=== PATIENT | male | born 1955 | race Hispanic/Latino ===

== ENCOUNTER 2016-09-19 22:27 | Inpatient (IN) | payer MEDICAID, OTHER ==
[2016-09-19 23:25] LABS: Basophils % (Auto) 0.6 % (0.0-1.8); Eosinophils % (Auto) 0.9 % (0.0-4.3); Hematocrit 36.4 % (35.5-45.6); Mean Corpuscular HGB Conc 33 % (32-34); Mean Corpuscular Hemoglobin 30 pg (28-32); Mean Corpuscular Volume 90 fl (84-94); Platelet Count 220 K/mm3 (140-440); Red Blood Count 4.06 M/mm3 (3.65-5.03); Red Cell Distribution Width 15.5 % (13.2-15.2); White Blood Count 8.7 K/mm3 (4.5-11.0)
[2016-09-19 23:35] LABS: INR 1.37 (0.87-1.13); Partial Thromboplastin Time 32.9 Sec. (24.2-36.6)
[2016-09-19 23:38] LABS: Anion Gap 17 mmol/L; Blood Urea Nitrogen 11 mg/dL (9-20); Calcium 9.3 mg/dL (8.4-10.2); Carbon Dioxide 22 mmol/L (22-30); Chloride 100.6 mmol/L (98-107); Glucose 85 mg/dL (75-100); Potassium 3.9 mmol/L (3.6-5.0); Sodium 136 mmol/L (137-145)
[2016-09-20] MEDS ORDERED: NACL 0.9% 500 ML 500 ML IV ONE (00:06)
[2016-09-20] MEDS ORDERED: ZOFRAN IV ONE (00:06)
[2016-09-20] MEDS ORDERED: ASPIRIN PO ONE (00:06)
[2016-09-20] MEDS ORDERED: MORPHINE IV ONE (00:06)
[2016-09-20] MEDS ORDERED: NITRO-BID 2% TP ONE (00:06)
--- NOTE | 2016-09-20 00:15 | Emergency Department Report ---
ED Chest Pain HPI - General Chief Complaint: Chest Pain Stated Complaint: CHEST PAIN Time Seen by Provider: 09/19/16 23:41 Source: patient, family Mode of arrival: Ambulatory Limitations: No Limitations - History of Present Illness MD Complaint: chest pain -: Gradual Onset: during rest Pain Location: substernal, left chest Pain Radiation: none Severity scale (0 -10): 3 Quality: tightness Consistency: constant Improves With: nothing Worsens With: nothing re: dyspnea. denies: nausea, vomting, diaphoresis, sense of impending doom Other Symptoms: syncope, palpitations. denies: cough, fever, rash, acid taste in mouth, leg swelling Treatments Prior to Arrival: none - Related Data Allergies Allergy/AdvReac Type Severity Reaction Status Date / Time No Known Allergies Allergy Verified 09/19/16 22:42 NICOLE score - Nicole Score Age > 65: (0) No Aspirin use within the Past 7 Days: (1) Yes 3 or more CAD Risk Factors: (0) No 2 or more Angina events in past 24 hrs: (1) Yes Known CAD with more than 50% Stenosis: (0) No Elevated Cardiac Markers: (0) No ST Deviation Greater than 0.5mm: (0) No NICOLE Score: 2 ED Review of Systems ROS: Stated complaint: CHEST PAIN Other details as noted in HPI Constitutional: denies: chills, fever Eyes: denies: eye pain, eye discharge, vision change ENT: denies: ear pain, throat pain Respiratory: denies: cough, shortness of breath, wheezing Cardiovascular: denies: chest pain, palpitations Endocrine: no symptoms reported Gastrointestinal: denies: abdominal pain, nausea, diarrhea Genitourinary: denies: urgency, dysuria Musculoskeletal: denies: back pain, joint swelling, arthralgia Skin: denies: rash, lesions Neurological: denies: headache, weakness, paresthesias Psychiatric: denies: anxiety, depression Hematological/Lymphatic: denies: easy bleeding, easy bruising ED Past Medical Hx - Past Medical History Previous Medical History?: Yes Hx COPD: Yes Additional medical history: ANEURYSM / VALVE REPLACEMENT - Surgical History Past Surgical History?: Yes Additional Surgical History: HEART SURGERY - Social History Smoking Status: Current Every Day Smoker Substance Use Type: None ED Physical Exam - General Limitations: No Limitations General appearance: alert, in no apparent distress - Head Head exam: Present: atraumatic, normocephalic - Eye Eye exam: Present: normal appearance - ENT ENT exam: Present: mucous membranes moist - Neck Neck exam: Present: normal inspection - Respiratory Respiratory exam: Present: normal lung sounds bilaterally. Absent: respiratory distress - Cardiovascular Cardiovascular Exam: Present: regular rate, normal rhythm. Absent: systolic murmur, diastolic murmur, rubs, gallop - GI/Abdominal GI/Abdominal exam: Present: soft, normal bowel sounds - Rectal Rectal exam: Present: deferred - Extremities Exam Extremities exam: Present: normal inspection - Back Exam Back exam: Present: normal inspection - Neurological Exam Neurological exam: Present: alert, oriented X3 - Psychiatric Psychiatric exam: Present: normal affect, normal mood - Skin Skin exam: Present: warm, dry, intact, normal color. Absent: rash ED Course Vital Signs 09/19/16 09/19/16 22:45 23:58 Temperature 97.8 F Pulse Rate 82 68 Respiratory 26 H 16 Rate Blood Pressure 126/87 Blood Pressure 121/76 [Left] O2 Sat by Pulse 98 95 Oximetry ED Medical Decision Making - Lab Data Result diagrams: 09/19/16 22:58 09/19/16 22:58 - EKG Data -: EKG Interpreted by Me EKG shows normal: sinus rhythm Rate: normal - EKG Data When compared to previous EKG there are: no significant change Interpretation: no acute changes - Radiology Data Radiology results: report reviewed, image reviewed - Medical Decision Making Patient here for chest pain , ekg with RBBB,labs negative, troponin negative, cxr negative,. Spoke to cardiology and hospitalist regarding the admission, pain better during his ER stay. Critical care attestation.: If time is entered above; I have spent that time in minutes in the direct care of this critically ill patient, excluding procedure time. ED Disposition Clinical Impression: Chest pain Disposition: DISCHARGED TO HOME OR SELFCARE Is pt being admited?: Yes Does the pt Need Aspirin: No Condition: Fair Instructions: Chest Pain (ED) Referrals: PRIMARY CARE, [Primary Care Provider] - 3-5 Days Time of Disposition: 00:15
[2016-09-20] MEDS ORDERED: NITROSTAT SL PRN (00:35)
[2016-09-20] MEDS ORDERED: ZOFRAN IV PRN (00:35)
--- NOTE | 2016-09-20 01:52 | History and Physical Report ---
CHIEF COMPLAINT: Chest pain. HISTORY OF PRESENTING ILLNESS: The patient is a 61-year-old male who developed sharp chest pain going on since yesterday. Pain is in the precordial area and also substernal area, and radiates to the left upper limb. There is no associated nausea or vomiting. There is no diaphoresis, but there is associated palpitation, near syncopal feeling, as well as dyspnea. Pain was relieved with morphine and nitroglycerin. PAST MEDICAL HISTORY: Pertinent for hypertension, COPD, aortic valve abnormality. PAST SURGICAL HISTORY: Pertinent for aortic valve replacement. FAMILY HISTORY: Family history is noncontributory. SOCIAL HISTORY: The patient smokes cigarettes daily. Does not drink alcohol and does not use illicit drugs. MEDICATIONS: The patient's home medications are not known at this time. ALLERGIES: There are no known drug allergies. REVIEW OF SYSTEMS: CONSTITUTIONAL: There is no fever, no chills, no diaphoresis. HEENT: There is no headache or sore throat. CARDIOVASCULAR: There is chest pain, but no orthopnea. RESPIRATORY: Shortness of breath present. No cough. GASTROINTESTINAL: There is no nausea, no vomiting, no abdominal pain, diarrhea or constipation. NEUROLOGICAL: There is no numbness, no dizziness, no altered mental status. MUSCULOSKELETAL: There is no joint pain or swelling. DERMATOLOGICAL: There is no skin rash or itching. GENITOURINARY: There is no dysuria, hematuria, or flank pain. Rest of system review is normal. PHYSICAL EXAMINATION: GENERAL: At the time of exam, the patient was found to be alert, oriented x 3 and in mild to moderate distress due to pain. VITAL SIGNS: Shows temperature of 97.8 degrees Fahrenheit, pulse of 74, respirations about 16, blood pressure 121/76, O2 sat of 91% on room air. HEENT: Showed pupils to be equal, round, reactive to light and accommodation. Extraocular muscles are intact. NECK: Supple with no JVD or carotid bruit. CARDIOVASCULAR: Showed first and second heart sounds with no gallops or murmurs. RESPIRATORY: Showed good air entry in both lungs with no abnormal breath sounds. GASTROINTESTINAL: Showed abdomen to be full, soft, nontender, with no organomegaly or rigidity. NEUROLOGICAL: Neuro exam showed no focal deficit. MUSCULOSKELETAL: Showed no joint swelling or tenderness. DERMATOLOGICAL: Showed no skin rash. GENITOURINARY: Showed no costovertebral angle tenderness. PERTINENT LABORATORY DATA AND IMAGING STUDIES: The patient has lab tests done with no report of any chest x-ray abnormality. The patient's CBC showed normal white count, normal hemoglobin and normal hematocrit, with CBC differential showed elevated neutrophilic count. The patient's coagulation study shows slight increase in INR. The patient's chemistry shows slight decrease in sodium level of 136. Rest of chemistry is being unremarkable. The patient's troponin level was normal. DIAGNOSIS: Chest pain. PLAN: The patient will be admitted to medical floor on telemetry. Using chest pain pathway, we will have cardiac enzymes involving troponin, total CK, and CK-MB check q.6h. x 2 more levels. The patient will have Lexiscan stress test done in the morning and will be on aspirin 325 mg by mouth daily and oxygen per chest pain protocol. The patient will be on nitro paste 1 inch to anterior chest wall q.6h. and will be on IV morphine 2 mg every 3 hours as needed for pain. The patient will also be on Zofran 4 mg every 6 hours as needed for nausea and vomiting. The patient's case has already been discussed with the Cardiology through a consult by the Emergency Room physician. Further management of patient's condition will be dependent on the Cardiology consult. JOB# [id number] EPTRN/WILMER CEDENO
[2016-09-20] MEDS: MORPHINE IV PRN ×6 (03:13→22:30)
[2016-09-20] MEDS: NITRO-BID 2% TP SCH ×4 (07:29→17:59)
[2016-09-20] MEDS ORDERED: LEXISCAN IV ONE ×2 (09:58→10:04)
[2016-09-20] MEDS: HEPARIN SUB-Q SCH ×2 (12:37→22:00)
--- NOTE | 2016-09-20 12:37 | Admit Criteria Form ---
Admission Criteria Documentation: CARDIOLOGY GRG Clinical Indications for Admission to Inpatient Care ( Place 'X' for any and all applicable criteria): Hospital admission is needed for appropriate care of the patient because of ANY ONE of the following (1): [ ] I. Hemodynamic instability as indicated by ALL of the following (1)(2)(3) (4)(5) [ ]a) Vital signs or other findings not as expected for chronic patient condition or baseline [ ]b) Instability indicated by ANY ONE of the following: [ ]i) Hypotension [ ]ii) Symptomatic Tachycardia unresponsive to treatment ( e.g., analgesia, fluids, sedation as indicated) [ ]iii) Inadequate perfusion indicated by ANY ONE of the following: [ ] 1) Lactic acidosis (> 2 mmol/L) [ ] 2) New abnormal capillary refill (> 3 seconds) [ ] 3) Reduced urine output [ ] 4) New altered mental status [ ]iv) Orthostatic vital sign changes unresponsive to treatment (e.g., fluids) [ ]v) IV inotropic or vasopressor medication required to maintain adequate blood pressure or perfusion [ ] II. Severe heart failure as indicated by ANY ONE of the following(17)(18) [ ]a) Respiratory distress [ ]b) Hypotension [ ]c) Anasarca (refractory to outpatient therapy) [ ]d) Cardiac arrhythmias of immediate concern [ ]e) Myocardial ischemia [ ] III. Cardiac arrhythmias or findings of immediate concern indicated by ANY ONE of the following (19)(20): [ ] a) Heart rhythms that are inherently dangerous or unstable indicated by ANY ONE of the following (21)(22)(23): [ ] i) Resuscitated ventricular fibrillation or cardiac arrest [ ] ii) Ventricular escape rhythm [ ] iii) Sustained ventricular tachycardia (30 seconds or more of ventricular rhythm at greater than 100 beats per minute) [ ] iv) Nonsustained ventricular tachycardia and ANY ONE of the following: [ ] 1) Suspected cardiac ischemia as cause or consequence of ventricular tachycardia [ ] 2) In setting of acute myocarditis [ ] b) Unstable cardiac conduction defects indicated by ANY ONE of the following(23)(24)(25) [ ] i) Type II second-degree atrioventricular block [ ]ii) Third-degree atrioventricular block [ ]iii) New-onset left bundle branch block with suspected myocardial ischemia [ ]c) Any heart rhythm and ANY ONE of the following (21)(22)(26)(27) (28) [ ] i) Continuous long-term ECG monitoring needed (e.g., initiation of drug requiring monitoring for more than 24 hours) [ ] ii) Patient has automatic implanted cardioverter defibrillator that is repeatedly firing, malfunctioning, or in need of immediate adjustment of settings beyond the scope of ambulatory or observation care [ ]d) Heart rhythms of concern due to ANY ONE of the following: [ ] i) Hypotension [ ] ii) Respiratory distress [ ] iii) Association with other significant symptoms (e.g., bradycardia with syncope or ongoing dizziness, supraventricular tachycardia with chest pain (14)(15)(17) [ ] IV. Monitoring for cardiac contusion beyond the scope of observation care needed [A](30)(31)(32) [ ] V. Surgical or device complication (e.g., valve replacement complication , pacemaker dysfunction) (35)(41)(44)(45)(46) [ ] . Inpatient palliative care needed. [B](49) Also use Inpatient Palliative Care Criteria [ ] VII. Nonbacterial thrombotic (marantic) endocarditis (36)(43)(47)(48) [X] VIII. Cardiology condition, symptom, or finding for which emergency and observation care has failed or are not considered appropriate. [ ] IX. Acute valvular disease requiring inpatient as indicated by ANY ONE of the following (41) [ ]a) Acute valvular regurgitation (42) [ ]b) Noninfectious valvulitis (43) [ ]c) Obstructive valve thrombosis [ ]d) Paravalvular leak [ ]e) Other significant valvular disorder remaining after emergency or observation level of care (as appropriate) [ ]X. Pericardial disease requiring inpatient treatment as indicated by ANY ONE of the following (33)(34)(35)(36)(37) [ ]a) Suspected tamponade (38)(39)(40) [ ]b) Hemopericardium [ ]c) Other significant pericardial disorder remaining after emergency or observation level of care (as appropriate) [ ] XI. Cardiac ischemia beyond scope of emergency and observation care. [ ] XII. Hypertension requiring inpatient treatment as indicated by ANY ONE of the following (6)(7)(8) [ ]a) SBP greater than 220 mm Hg or DBP greater than 120 mmHg despite treatment [ ]b) SBP greater than 140 mm Hg or DBP greater than 100 mm Hg with evidence of acute end organ damage as indicated by ANY ONE of the following [ ] i) Altered mental status [ ] ii) Acute renal failure as indicated by new onset of ANY ONE of the following (9)(10)(11)(12)(13) [ ]1) 3-fold rise in serum creatinine from baseline [ ]2) Serum creatinine greater than 4 mg/dL ( 354 micromoles/L) with acute rise greater than 0.5 mg/dL (44.2 micromoles/L) [ ]3) Reduction of more than 75% in estimated glomerular filtration rate from baseline [ ]4) Estimated glomerular filtration rate less than 35 mL/min/1.73m2 (0.59 mL/sec/1.73m2) in child up to 18 years of age [ ]5) Cessation of urine output indicated by ALL of the following [ ]A. Adequate volume status [ ]B. Inadequate urine output as indicated by ANY ONE of the following [ ]a. Urine output less than 0.3 mL/kg/hr for 24 hours [ ]b. Anuria (urine output less than 0.1 mL/kg/hr) for 12 hours [ ] iii) Aortic dissection [ ] iv) Myocardial Ischemia [ ] v) Left ventricular heart failure [ ]vi) Retinal Hemorrhage [ ]vii) Other significant finding [ ]c) Hypertension in child requiring inpatient treatment as indicated by ALL of the following(14)(15)(16) [ ] i) Outpatient treatment not effective, not available, or not appropriate [ ]ii) SBP or DBP greater than 95th percentile for age [ ]iii) Evidence of acute end organ damage as indicated by ANY ONE of the following [ ]1) Altered mental status [ ]2) Acute renal failure as indicated by new onset of ANY ONE of the following(9)(10)(11)(12)(13) [ ]A. 3-fold rise in serum creatinine from baseline [ ]B. Serum creatinine greater than 4 mg/dL (354 micromoles/L) with acute rise greater than 0.5 mg/dL (44.2 micromoles/L) [ ]C. Reduction of more than 75% in estimated glomerular filtration rate from baseline [ ]D. Estimated glomerular filtration rate less than 35 mL/min/1.73m2 (0.59 mL/sec/1.73m2) in child up to 18 years of age [ ]E. Cessation of urine output indicated by ALL of the following [ ]a. Adequate volume status [ ]b. Inadequate urine output as indicated by ANY ONE of the following [ ]i) Urine output less than 0.3 mL/kg/hr for 24 hours [ ]ii) Anuria ( urine output less than 0.1 mL/kg/hr) for 12 hours [ ]3) Severe headache [ ]4) Visual disturbance [ ]5) Retinal hemorrhage [ ]6) Other significant finding [ ]XIII. Complications of transplanted heart indicated by ANY ONE of the following(61): [ ]a) Acute graft rejection requiring inpatient management (eg, intravenous immunosuppression)(62)(63) [ ]b) Acute graft heart failure indicated by ANY ONE of the following(64): [ ]i) Hemodynamic instability [ ]ii) Cardiac arrhythmias of immediate concern [ ]iii) Pulmonary edema that is very severe (eg, mechanical ventilation needed, imminent or likely, need for 100% oxygen to keep oxygen saturation above 90%) [ ]iv) Pulmonary edema that is persistent as indicated by ALL of the following: [ ]1) New need for oxygen therapy to keep oxygen saturation above 90% (or increased FiO2 need from baseline) [ ]2) Has not improved sufficiently with emergency department or observation care IV diuretics or other heart failure treatments[E] [ ]v) Altered mental status that is severe or persistent [ ]vi) Increased creatinine (new on laboratory test) with reduction of more than 50% in estimated glomerular filtration rate from baseline [ ]vii) Progressively (ongoing) rising creatinine (known from past laboratory test) with reduction of more than 25% in estimated glomerular filtration rate from baseline [ ]viii) Acute renal failure [ ]ix) Acute peripheral ischemia (eg, examination shows pulseless, cool, mottled, or cyanotic extremity) [ ]x) Pulmonary artery catheter monitoring needed [ ]xi) Other sign or symptom of heart failure requiring inpatient treatment (ie, too severe or not responsive to outpatient and observation care treatment) [ ]c) Infection requiring inpatient management (eg, Hemodynamic instability, need for intravenous antimicrobial treatment)(66)(67)(68)(69)(70) [ ]d) Cardiac allograft vasculopathy requiring inpatient management ( eg evidence of cardiac ischemia)(71) [ ]e) Other complication of transplanted heart (eg, stroke, severe pulmonary hypertension, severe valvular dysfunction) requiring inpatient management(72) The original [facility] [employer] content created by [employer] has been revised. The portions of the content which have been revised are identified through the use of italic text or in bold, and [facility] has neither reviewed nor approved the modified material. All other unmodified content is copyright [facility] [employer]. Please see references footnoted in the original [facility] [employer] edition 2016 Admission Criteria Met: Yes
[2016-09-20 14:35] LABS: Creatine Kinase MB 3.7 ng/mL (0.0-4.0)
[2016-09-20 14:37] LABS: Creatine Kinase 134 units/L (55-170)
[2016-09-20] MEDS: COUMADIN PO SCH (17:25)
[2016-09-20 19:17] LABS: Creatine Kinase MB 3.7 ng/mL (0.0-4.0)
[2016-09-20 19:19] LABS: Creatine Kinase 123 units/L (55-170)
[2016-09-21] MEDS: MORPHINE IV PRN ×5 (02:15→19:00)
--- NOTE | 2016-09-21 02:42 | Treadmill Report ---
INDICATION: Chest pain. ORDERING PHYSICIAN: Gina Montgomery M.D. FINDINGS: There is no scintigraphic evidence of myocardial ischemia. There is evidence of small fixed inferior wall defect likely secondary to diaphragmatic, adjacent bowel attenuation. There is normal left ventricular size and systolic function. The left ventricular ejection fraction is measured at 51%. There is normal wall motion and wall thickening. CONCLUSION: 1. No scintigraphic evidence of myocardial ischemia. 2. Fixed small inferior wall defect secondary to overlying diaphragmatic, bowel attenuation. 3. Normal left ventricular size and systolic function and left ventricular ejection fraction is measured at 51%. JOB# [id number] KEITH/WILMER
[2016-09-21 06:37] LABS: INR 1.16 (0.87-1.13)
[2016-09-21] MEDS: NITRO-BID 2% TP SCH ×3 (10:00→18:03)
[2016-09-21] MEDS ORDERED: LOVENOX SUB-Q SCH (12:00)
--- NOTE | 2016-09-21 13:52 | Progress Note ---
Assessment and Plan This is a 61 year old male presented with left precordial chest pain at rest. He states that he had a recent thallium scan which was negative but while in the emergency room patient was found to have a subtherapeutic INR and admitted to a adjust his Coumadin. Acute chest pain, recent stress test negative, cardiology consult HTN, cont home meds COPD, not on exacerbation, duenebs as needed h/o mechanical aortic valve, on coumadin Subtherapeutic INR, bridge with lovenox till therapeutic Subjective Date of service: 09/21/16 Interval history: Pt seen and examined denies any chest pain now worried about low INR Updated at bedside Objective - Constitutional Vitals: Vital Signs - 12hr 09/21/16 09/21/16 09/21/16 02:15 02:45 06:35 Temperature 99.1 F Pulse Rate [ 65 Right Radial] Respiratory 18 18 20 Rate Blood Pressure 117/68 [Right Arm] O2 Sat by Pulse 95 Oximetry 09/21/16 09/21/16 09:53 09:57 Temperature 97.2 F L Pulse Rate [ 61 Right Radial] Respiratory 18 Rate Blood Pressure 120/69 [Right Arm] O2 Sat by Pulse 96 94 Oximetry General appearance: Present: no acute distress, well-nourished - EENT Eyes: PERRL, EOM intact ENT: hearing intact, clear oral mucosa Ears: bilateral: normal - Neck Neck: supple, normal ROM - Respiratory Respiratory effort: normal Respiratory: bilateral: CTA - Breasts Breasts: deferred - Cardiovascular Rhythm: regular Heart Sounds: Present: S1 & S2. Absent: gallop, rub Extremities: pulses intact, No edema, normal color, Full ROM - Gastrointestinal General gastrointestinal: Present: soft, non-tender, non-distended, normal bowel sounds - Genitourinary Male genitourinary: deferred - Integumentary Integumentary: clear, warm, dry - Musculoskeletal Musculoskeletal: 1, strength equal bilaterally - Neurologic Neurologic: moves all extremities - Psychiatric Psychiatric: memory intact, appropriate mood/affect, intact judgment & insight - Labs CBC & Chem 7: 09/19/16 22:58 09/21/16 13:27 Labs: Abnormal lab results 09/21/16 Range/Units 04:50 INR 1.16 H (0.87-1.13)
[2016-09-21 14:30] LABS: Anion Gap 16 mmol/L; Blood Urea Nitrogen 12 mg/dL (9-20); Calcium 8.7 mg/dL (8.4-10.2); Carbon Dioxide 28 mmol/L (22-30); Chloride 100.1 mmol/L (98-107); Glucose 93 mg/dL (75-100); Sodium 140 mmol/L (137-145)
[2016-09-21] MEDS: COUMADIN PO SCH (17:59)
[2016-09-21] MEDS: LOVENOX SUB-Q SCH (21:43)
[2016-09-21] MEDS: PERCOCET 5/325 PO PRN (22:10)
[2016-09-22] MEDS: MORPHINE IV PRN ×4 (05:55→20:18)
[2016-09-22] MEDS: NITRO-BID 2% TP SCH ×4 (05:56→17:44)
[2016-09-22 07:53] LABS: INR 1.15 (0.87-1.13)
[2016-09-22] MEDS: LOVENOX SUB-Q SCH ×2 (09:37→22:20)
[2016-09-22] MEDS ORDERED: COUMADIN PO SCH (09:50)
--- NOTE | 2016-09-22 12:41 | Consultation ---
History of Present Illness Consult date: 09/22/16 Consult reason: chest pain History of present illness: This is a 61 year old male presented with left precordial chest pain at rest. He claims he had a recent thallium scan which was negative but while in the emergency room patient was found to have a subtherapeutic INR and admitted to a adjust his Coumadin. Past History Past Medical History: COPD, hypertension Past Surgical History: valve replacement Social history: lives with family, smoking Family history: no significant family history Medications and Allergies Allergies Allergy/AdvReac Type Severity Reaction Status Date / Time No Known Allergies Allergy Verified 09/19/16 22:42 Home Medications Medication Instructions Recorded Confirmed Last Taken Type Metoprolol 25 mg PO DAILY 09/20/16 09/20/16 Unknown History Sertraline 50 mg PO DAILY 09/20/16 09/20/16 Unknown History Warfarin Sodium 5 mg PO BID 09/20/16 09/20/16 Unknown History Active Meds: Active Medications Acetaminophen (Tylenol) 650 mg PO Q4H PRN PRN Reason: For Pain/Fever/Headache Enoxaparin Sodium (Lovenox) 70 mg SUB-Q Q12HR [facility] Last Admin: 09/22/16 09:37 Dose: 70 mg Morphine Sulfate (Morphine) 2 mg IV Q3H PRN PRN Reason: Pain, Moderate (4-6) Last Admin: 09/22/16 09:35 Dose: 2 mg Nitroglycerin (Nitrostat) 0.4 mg SL Q5M PRN PRN Reason: Chest pain Nitroglycerin (Nitro-Bid 2%) 1 inch TP QIDNTG [facility] PRN Reason: Protocol Last Admin: 09/22/16 09:46 Dose: 1 inch Ondansetron HCl (Zofran) 4 mg IV Q6H PRN PRN Reason: Nausea And Vomiting Oxycodone/Acetaminophen (Percocet 5/325) 1 tab PO Q6H PRN PRN Reason: Pain, Moderate (4-6) Last Admin: 09/21/16 22:10 Dose: 1 tab Warfarin Sodium (Coumadin Pharmacy To Dose) 1 each PO PKCONSULT [facility] PRN Reason: Protocol Warfarin Sodium (Coumadin) 12.5 mg PO DAILY@1700 [facility] Review of Systems Cardiovascular: chest pain Physical Examination Vital Signs Temp Pulse Resp BP Pulse Ox 97.8 F 82 26 H 126/87 98 09/19/16 22:45 09/19/16 22:45 09/19/16 22:45 09/19/16 22:45 09/19/16 22:45 General appearance: no acute distress, well-nourished HEENT: Positive: PERRL, Mucus Membranes Moist Neck: Positive: neck supple, trachea midline Cardiac: Positive: Reg Rate and Rhythm, S1/S2 (metallic click second heart sounds). Negative: Audible Murmur Lungs: Positive: clear to auscultation, Normal Breath Sounds Neuro: Positive: Grossly Intact Abdomen: Positive: Soft, Active Bowel Sounds. Negative: Tender, Distended Male genitourinary: Positive: normal Skin: Positive: Clear Incision: Cardiac Cath Site Musculoskeletal: No Pain, Normal Range of Motion Extremities: Present: normal. Absent: edema Results 09/19/16 22:58 09/21/16 13:27 Coagulation 09/22/16 Range/Units 07:11 PT 14.6 (12.2-14.9) Sec. INR 1.15 H (0.87-1.13) Comprehensive Metabolic Panel 09/21/16 Range/Units 13:27 Sodium 140 (137-145) mmol/L Potassium 4.0 (3.6-5.0) mmol/L Chloride 100.1 (98-107) mmol/L Carbon Dioxide 28 (22-30) mmol/L BUN 12 (9-20) mg/dL Creatinine 1.1 (0.8-1.5) mg/dL Glucose 93 (75-100) mg/dL Calcium 8.7 (8.4-10.2) mg/dL Assessment and Plan 1. Atypical chest pains several troponin levels are normal according to patient had a recent thallium scan done which was negative. 2. Subtherapeutic INR and adjust Coumadin dose 3. Status post aortic valve replacement 4. Chronic obstructive pulmonary disease Plan. Patient is a patient of Dr. Brendan Freed which I'll obtain records of recent thallium scan done from the office. Continue Lovenox coverage and adjust Coumadin dose
--- NOTE | 2016-09-22 16:17 | Progress Note ---
Assessment and Plan This is a 61 year old male presented with left precordial chest pain at rest. He states that he had a recent thallium scan which was negative but while in the emergency room patient was found to have a subtherapeutic INR and admitted to a adjust his Coumadin. Acute chest pain, recent stress test negative, cardiology consult HTN, cont home meds COPD, not on exacerbation, duenebs as needed h/o mechanical aortic valve, on coumadin Subtherapeutic INR, bridge with lovenox till therapeutic, increased dose of coumadin today Subjective Date of service: 09/22/16 Principal diagnosis: chest pain Interval history: Pt seen and examined denies any chest pain now worried about low INR no acute event o/n Objective - Constitutional Vitals: Vital Signs - 12hr 09/22/16 09/22/16 09/22/16 05:56 09:41 09:46 Temperature 98.0 F Pulse Rate 84 84 Pulse Rate [ 76 Right Radial] Blood Pressure 128/76 128/76 Blood Pressure 133/83 [Right Arm] O2 Sat by Pulse 97 Oximetry 09/22/16 09/22/16 15:07 15:29 Temperature Pulse Rate 70 Pulse Rate [ 73 Right Radial] Blood Pressure 131/71 Blood Pressure 126/71 [Right Arm] O2 Sat by Pulse Oximetry General appearance: Present: no acute distress, well-nourished - EENT Eyes: PERRL, EOM intact ENT: hearing intact, clear oral mucosa Ears: bilateral: normal - Neck Neck: supple, normal ROM - Respiratory Respiratory effort: normal Respiratory: bilateral: CTA - Cardiovascular Rhythm: regular Heart Sounds: Present: S1 & S2. Absent: gallop, rub Extremities: pulses intact, No edema, normal color, Full ROM - Gastrointestinal General gastrointestinal: Present: soft, non-tender, non-distended, normal bowel sounds - Integumentary Integumentary: clear, warm, dry - Musculoskeletal Musculoskeletal: 1, strength equal bilaterally - Neurologic Neurologic: moves all extremities - Psychiatric Psychiatric: memory intact, appropriate mood/affect, intact judgment & insight - Labs CBC & Chem 7: 09/19/16 22:58 09/21/16 13:27 Labs: Abnormal lab results 09/22/16 Range/Units 07:11 INR 1.15 H (0.87-1.13)
[2016-09-22] MEDS: COUMADIN PO SCH ×2 (17:42→17:43)
[2016-09-22] MEDS: PERCOCET 5/325 PO PRN (23:35)
[2016-09-23] MEDS: MORPHINE IV PRN ×4 (04:28→20:12)
[2016-09-23] MEDS: NITRO-BID 2% TP SCH ×5 (06:25→17:53)
[2016-09-23 08:10] LABS: INR 1.16 (0.87-1.13)
[2016-09-23] MEDS: LOVENOX SUB-Q SCH ×2 (10:54→21:49)
--- NOTE | 2016-09-23 11:52 | Progress Note ---
Assessment and Plan Atypical chest pain no ischemia by MPI this admission Hx of mechanical Aortic valve replacement on warfarin therapy as an outpatient. Subtherapeutic INR on presentation Recommend: Continue coumadin with lovenox bridge. Target INR 2.5-3.5. Pharmacy is following. Subjective Date of service: 09/23/16 Principal diagnosis: chest pain Interval history: Patient resting in bed comfortably. He had a negative stress thallium this admission. He has a remote history of mechanical AVR and awaits therapeutic INR before discharge. Objective Vital Signs Temp Pulse Pulse Pulse Resp BP BP 09/23/16 07:45 97.9 F 70 18 135/75 09/23/16 05:54 98.7 F 77 20 128/70 09/23/16 04:28 8 L 09/23/16 01:09 98.7 F 59 L 18 113/64 09/22/16 22:00 16 09/22/16 21:20 98.1 F 69 20 110/64 09/22/16 19:10 65 116/68 09/22/16 17:44 72 109/68 09/22/16 15:29 73 126/71 09/22/16 15:07 70 131/71 Pulse Ox 09/23/16 07:45 98 09/23/16 05:54 95 09/23/16 04:28 09/23/16 01:09 96 09/22/16 22:00 09/22/16 21:20 96 09/22/16 19:10 09/22/16 17:44 09/22/16 15:29 09/22/16 15:07 - Physical Examination General: No Apparent Distress HEENT: Positive: PERRL Neck: Positive: trachea midline Cardiac: Positive: Reg Rate and Rhythm Lungs: Positive: Decreased Breath Sounds Neuro: Positive: Grossly Intact Extremities: Absent: edema - Labs and Meds Coagulation 09/23/16 Range/Units 05:43 PT 14.7 (12.2-14.9) Sec. INR 1.16 H (0.87-1.13)
--- NOTE | 2016-09-23 15:52 | Progress Note ---
Assessment and Plan This is a 61 year old male presented with left precordial chest pain at rest. He states that he had a recent thallium scan which was negative but while in the emergency room patient was found to have a subtherapeutic INR and admitted to a adjust his Coumadin. Acute chest pain, recent stress test negative, cardiology following HTN, cont home meds COPD, not on exacerbation, duenebs as needed h/o mechanical aortic valve, on coumadin Subtherapeutic INR, bridge with lovenox till therapeutic, pharmacy dosing coumadin Subjective Principal diagnosis: chest pain Interval history: Pt seen and examined denies any chest pain now worried about low INR no acute event o/n Objective - Constitutional Vitals: Vital Signs - 12hr 09/23/16 09/23/16 09/23/16 04:28 05:54 07:21 Temperature 98.7 F Pulse Rate 65 Pulse Rate [ Left Radial] Pulse Rate [ 77 Right Dorsalis Pedis] Pulse Rate [ Right Radial] Respiratory 8 L 20 Rate Blood Pressure Blood Pressure 128/70 [Right Arm] O2 Sat by Pulse 95 Oximetry 09/23/16 09/23/16 09/23/16 07:45 10:55 10:56 Temperature 97.9 F Pulse Rate 70 70 Pulse Rate [ Left Radial] Pulse Rate [ Right Dorsalis Pedis] Pulse Rate [ 70 Right Radial] Respiratory 18 Rate Blood Pressure 135/75 135/75 Blood Pressure 135/75 [Right Arm] O2 Sat by Pulse 98 Oximetry 09/23/16 09/23/16 14:00 15:00 Temperature Pulse Rate 56 L Pulse Rate [ 56 L Left Radial] Pulse Rate [ Right Dorsalis Pedis] Pulse Rate [ Right Radial] Respiratory Rate Blood Pressure 107/62 Blood Pressure 107/62 [Right Arm] O2 Sat by Pulse Oximetry General appearance: Present: no acute distress, well-nourished - EENT Eyes: PERRL, EOM intact ENT: hearing intact, clear oral mucosa Ears: bilateral: normal - Neck Neck: supple, normal ROM - Respiratory Respiratory effort: normal Respiratory: bilateral: CTA - Cardiovascular Rhythm: regular Heart Sounds: Present: S1 & S2. Absent: gallop, rub Extremities: pulses intact, No edema, normal color, Full ROM - Gastrointestinal General gastrointestinal: Present: soft, non-tender, non-distended, normal bowel sounds - Integumentary Integumentary: clear, warm, dry - Musculoskeletal Musculoskeletal: 1, strength equal bilaterally - Neurologic Neurologic: moves all extremities - Psychiatric Psychiatric: memory intact, appropriate mood/affect, intact judgment & insight - Labs CBC & Chem 7: 09/19/16 22:58 09/21/16 13:27 Labs: Abnormal lab results 09/23/16 Range/Units 05:43 INR 1.16 H (0.87-1.13)
[2016-09-23] MEDS: COUMADIN PO SCH ×2 (17:53)
[2016-09-23] MEDS: PERCOCET 5/325 PO PRN (21:50)
[2016-09-24] MEDS: TYLENOL PO PRN ×2 (00:10→22:59)
[2016-09-24] MEDS: MORPHINE IV PRN (03:05)
[2016-09-24] MEDS: NITRO-BID 2% TP SCH ×4 (06:28→18:00)
[2016-09-24 08:01] LABS: INR 1.33 (0.87-1.13)
[2016-09-24] MEDS: LOVENOX SUB-Q SCH ×2 (09:46→22:58)
--- NOTE | 2016-09-24 10:40 | Progress Note ---
Assessment and Plan Atypical chest pain no ischemia by MPI this admission Hx of mechanical Aortic valve replacement on warfarin therapy as an outpatient. Subtherapeutic INR on presentation Recommend: Continue coumadin with lovenox bridge. Target INR 2.5-3.5. Pharmacy is following. Discharge when INR is therapeutic for mechanical valve. Subjective Date of service: 09/24/16 Principal diagnosis: chest pain Interval history: There are no cardiac complaints. Awaits therapeutic INR. Objective Vital Signs Temp Pulse Pulse Pulse Pulse Resp BP 09/24/16 09:41 70 09/24/16 09:00 98.7 F 79 12 09/24/16 08:45 98.7 F 79 16 09/24/16 06:28 59 L 100/49 09/24/16 05:16 98.2 F 59 L 20 09/24/16 03:40 64 09/24/16 03:05 20 09/24/16 00:23 97.6 F 58 L 18 09/24/16 00:10 20 09/23/16 21:50 18 09/23/16 20:42 18 09/23/16 20:12 98 F 63 20 09/23/16 17:53 64 111/66 09/23/16 17:00 97.9 F 64 18 09/23/16 15:00 56 L 107/62 09/23/16 14:00 56 L 09/23/16 11:55 97.9 F 60 18 09/23/16 10:56 70 135/75 09/23/16 10:55 70 135/75 BP BP Pulse Ox 09/24/16 09:41 90/54 09/24/16 09:00 114/65 95 09/24/16 08:45 140/93 99 09/24/16 06:28 09/24/16 05:16 100/49 96 09/24/16 03:40 09/24/16 03:05 09/24/16 00:23 118/66 96 09/24/16 00:10 09/23/16 21:50 09/23/16 20:42 09/23/16 20:12 108/67 98 09/23/16 17:53 09/23/16 17:00 111/66 97 09/23/16 15:00 09/23/16 14:00 107/62 09/23/16 11:55 125/72 97 09/23/16 10:56 09/23/16 10:55 - Physical Examination General: No Apparent Distress HEENT: Positive: PERRL Neck: Positive: trachea midline Cardiac: Positive: Reg Rate and Rhythm Neuro: Positive: Grossly Intact Abdomen: Negative: Tender, Distended Skin: Positive: Clear Incision: Cardiac Cath Site Musculoskeletal: No Pain, Normal Range of Motion Extremities: Absent: edema - Labs and Meds Coagulation 09/24/16 Range/Units 06:25 PT 16.4 H (12.2-14.9) Sec. INR 1.33 H (0.87-1.13)
[2016-09-24] MEDS: PERCOCET 5/325 PO PRN ×2 (12:10→18:55)
--- NOTE | 2016-09-24 16:53 | Progress Note ---
Assessment and Plan This is a 61 year old male presented with left precordial chest pain at rest. He states that he had a recent thallium scan which was negative but while in the emergency room patient was found to have a subtherapeutic INR and admitted to a adjust his Coumadin. Acute chest pain, recent stress test negative, cardiology following HTN, cont home meds COPD, not on exacerbation, duenebs as needed h/o mechanical aortic valve, on coumadin Subtherapeutic INR, bridge with lovenox till therapeutic, pharmacy dosing coumadin Subjective Date of service: 09/24/16 Principal diagnosis: chest pain Interval history: Pt seen and examined denies any chest pain now worried about low INR no acute event o/n Objective - Exam Narrative Exam: General appearance: Present: no acute distress, well-nourished - EENT Eyes: PERRL, EOM intact ENT: hearing intact, clear oral mucosa Ears: bilateral: normal - Neck Neck: supple, normal ROM - Respiratory Respiratory effort: normal Respiratory: bilateral: CTA - Cardiovascular Rhythm: regular Heart Sounds: Present: S1 & S2. Absent: gallop, rub Extremities: pulses intact, No edema, normal color, Full ROM - Gastrointestinal General gastrointestinal: Present: soft, non-tender, non-distended, normal bowel sounds - Integumentary Integumentary: clear, warm, dry - Musculoskeletal Musculoskeletal: 1, strength equal bilaterally - Neurologic Neurologic: moves all extremities - Psychiatric Psychiatric: memory intact, appropriate mood/affect, intact judgment & insight - Constitutional Vitals: Vital Signs - 12hr 09/24/16 09/24/16 09/24/16 05:16 06:28 08:45 Temperature 98.2 F 98.7 F Pulse Rate 59 L Pulse Rate [ Left Radial] Pulse Rate [ 59 L Right Dorsalis Pedis] Pulse Rate [ 79 Right Radial] Respiratory 20 16 Rate Blood Pressure 100/49 Blood Pressure 100/49 140/93 [Right Arm] O2 Sat by Pulse 96 99 Oximetry 09/24/16 09/24/16 09/24/16 09:00 09:41 11:53 Temperature 98.7 F 97.5 F L Pulse Rate Pulse Rate [ 70 56 L Left Radial] Pulse Rate [ Right Dorsalis Pedis] Pulse Rate [ 79 Right Radial] Respiratory 12 18 Rate Blood Pressure Blood Pressure 114/65 90/54 112/71 [Right Arm] O2 Sat by Pulse 95 96 Oximetry - Labs CBC & Chem 7: 09/19/16 22:58 09/21/16 13:27 Labs: Abnormal lab results 09/24/16 Range/Units 06:25 PT 16.4 H (12.2-14.9) Sec. INR 1.33 H (0.87-1.13)
[2016-09-24] MEDS: COUMADIN PO SCH ×2 (17:48)
[2016-09-25] MEDS: PERCOCET 5/325 PO PRN ×4 (00:56→20:04)
[2016-09-25 05:57] LABS: INR 1.65 (0.87-1.13)
[2016-09-25] MEDS: NITRO-BID 2% TP SCH ×4 (06:35→17:51)
--- NOTE | 2016-09-25 09:25 | Progress Note ---
Assessment and Plan Atypical chest pain no ischemia by MPI this admission Hx of mechanical Aortic valve replacement on warfarin therapy as an outpatient Subtherapeutic INR on presentation Recommend: Continue coumadin with lovenox bridge. Target INR 2.5-3.5. Pharmacy is following. Discharge when INR is therapeutic for mechanical valve. Subjective Date of service: 09/25/16 Principal diagnosis: chest pain Interval history: There are no cardiac complaints. Awaits therapeutic INR. Objective Vital Signs Temp Pulse Pulse Pulse Resp BP BP 09/25/16 08:44 61 09/25/16 06:35 52 L 129/72 09/25/16 05:55 100.8 F H 89 20 124/69 09/25/16 00:50 98.1 F 52 L 18 129/72 09/24/16 20:57 97.8 F 63 20 116/67 09/24/16 19:06 114/63 09/24/16 11:53 97.5 F L 56 L 18 112/71 09/24/16 09:41 70 90/54 Pulse Ox 09/25/16 08:44 09/25/16 06:35 09/25/16 05:55 98 09/25/16 00:50 98 09/24/16 20:57 99 09/24/16 19:06 09/24/16 11:53 96 09/24/16 09:41 - Physical Examination General: No Apparent Distress HEENT: Positive: PERRL Neck: Positive: trachea midline Cardiac: Positive: Reg Rate and Rhythm Lungs: Positive: Decreased Breath Sounds Neuro: Positive: Grossly Intact Extremities: Absent: edema - Labs and Meds Coagulation 09/25/16 Range/Units 05:20 PT 19.5 H (12.2-14.9) Sec. INR 1.65 H (0.87-1.13)
[2016-09-25] MEDS: LOVENOX SUB-Q SCH ×2 (10:11→21:25)
--- NOTE | 2016-09-25 15:50 | Progress Note ---
Assessment and Plan This is a 61 year old male presented with left precordial chest pain at rest. He states that he had a recent thallium scan which was negative but while in the emergency room patient was found to have a subtherapeutic INR and admitted to a adjust his Coumadin. Acute chest pain, recent stress test negative, cardiology following HTN, cont home meds COPD, not on exacerbation, duenebs as needed h/o mechanical aortic valve, on coumadin Subtherapeutic INR, bridge with lovenox till therapeutic, pharmacy dosing coumadin Subjective Date of service: 09/25/16 Principal diagnosis: chest pain Interval history: Pt seen and examined denies any chest pain now no acute event o/n INR 1.65 today Objective - Exam Narrative Exam: General appearance: Present: no acute distress, well-nourished - EENT Eyes: PERRL, EOM intact ENT: hearing intact, clear oral mucosa Ears: bilateral: normal - Neck Neck: supple, normal ROM - Respiratory Respiratory effort: normal Respiratory: bilateral: CTA - Cardiovascular Rhythm: regular Heart Sounds: Present: S1 & S2. Absent: gallop, rub Extremities: pulses intact, No edema, normal color, Full ROM - Gastrointestinal General gastrointestinal: Present: soft, non-tender, non-distended, normal bowel sounds - Integumentary Integumentary: clear, warm, dry - Musculoskeletal Musculoskeletal: 1, strength equal bilaterally - Neurologic Neurologic: moves all extremities - Psychiatric Psychiatric: memory intact, appropriate mood/affect, intact judgment & insight - Constitutional Vitals: Vital Signs - 12hr 09/25/16 09/25/16 09/25/16 05:55 06:35 08:44 Temperature 100.8 F H Pulse Rate 52 L 61 Pulse Rate [ Left Radial] Pulse Rate [ 89 Right Dorsalis Pedis] Respiratory 20 Rate Blood Pressure 129/72 Blood Pressure 124/69 [Right Arm] O2 Sat by Pulse 98 Oximetry 09/25/16 09:52 Temperature 97.6 F Pulse Rate Pulse Rate [ 57 L Left Radial] Pulse Rate [ Right Dorsalis Pedis] Respiratory 18 Rate Blood Pressure Blood Pressure 164/96 [Right Arm] O2 Sat by Pulse 96 Oximetry - Labs CBC & Chem 7: 09/19/16 22:58 09/21/16 13:27 Labs: Abnormal lab results 09/25/16 Range/Units 05:20 PT 19.5 H (12.2-14.9) Sec. INR 1.65 H (0.87-1.13)
[2016-09-25] MEDS: COUMADIN PO SCH ×2 (17:50)
[2016-09-26] MEDS: PERCOCET 5/325 PO PRN ×4 (01:47→23:45)
[2016-09-26] MEDS: NITRO-BID 2% TP SCH ×3 (06:55→14:20)
[2016-09-26 07:55] LABS: INR 1.85 (0.87-1.13)
[2016-09-26] MEDS: LOVENOX SUB-Q SCH ×2 (09:33→21:16)
--- NOTE | 2016-09-26 13:36 | Progress Note ---
Assessment and Plan This is a 61 year old male presented with left precordial chest pain at rest. He states that he had a recent thallium scan which was negative but while in the emergency room patient was found to have a subtherapeutic INR and admitted to a adjust his Coumadin. Acute chest pain, recent stress test negative, cardiology following HTN, cont home meds COPD, not on exacerbation, duenebs as needed h/o mechanical aortic valve, on coumadin Subtherapeutic INR, bridge with lovenox till therapeutic, pharmacy dosing coumadin Subjective Date of service: 09/26/16 Principal diagnosis: chest pain Interval history: Pt seen and examined denies any chest pain now no acute event o/n INR 1.85 today Objective - Exam Narrative Exam: General appearance: Present: no acute distress, well-nourished - EENT Eyes: PERRL, EOM intact ENT: hearing intact, clear oral mucosa Ears: bilateral: normal - Neck Neck: supple, normal ROM - Respiratory Respiratory effort: normal Respiratory: bilateral: CTA - Cardiovascular Rhythm: regular Heart Sounds: Present: S1 & S2. Absent: gallop, rub Extremities: pulses intact, No edema, normal color, Full ROM - Gastrointestinal General gastrointestinal: Present: soft, non-tender, non-distended, normal bowel sounds - Integumentary Integumentary: clear, warm, dry - Musculoskeletal Musculoskeletal: 1, strength equal bilaterally - Neurologic Neurologic: moves all extremities - Psychiatric Psychiatric: memory intact, appropriate mood/affect, intact judgment & insight - Constitutional Vitals: Vital Signs - 12hr 09/26/16 09/26/16 09/26/16 01:47 01:56 04:25 Temperature 98.2 F 98.9 F Pulse Rate Pulse Rate [ 65 Left Radial] Pulse Rate [ 73 Right Radial] Respiratory 17 20 20 Rate Blood Pressure Blood Pressure 139/85 135/81 [Right Arm] O2 Sat by Pulse 97 97 Oximetry 09/26/16 09/26/16 06:55 09:32 Temperature Pulse Rate 70 71 Pulse Rate [ Left Radial] Pulse Rate [ Right Radial] Respiratory Rate Blood Pressure 154/92 132/82 Blood Pressure [Right Arm] O2 Sat by Pulse Oximetry - Labs CBC & Chem 7: 09/19/16 22:58 09/21/16 13:27 Labs: Abnormal lab results 09/26/16 Range/Units 06:37 PT 21.3 H (12.2-14.9) Sec. INR 1.85 H (0.87-1.13)
[2016-09-26] MEDS: COUMADIN PO SCH ×2 (17:34)
--- NOTE | 2016-09-26 17:47 | Progress Note ---
Assessment and Plan - Patient Problems (1) Mechanical heart valve present Current Visit: Yes Status: Acute Plan to address problem: Continue Coumadin anticoagulation, target INR 2.5-3.5. Subjective Date of service: 09/26/16 Principal diagnosis: chest pain Interval history: Patient is comfortable, no new cardiac complaints. INR is 1.85. Objective Vital Signs Temp Pulse Pulse Pulse Resp BP BP 09/26/16 14:20 67 115/61 09/26/16 09:32 71 132/82 09/26/16 06:55 70 154/92 09/26/16 04:25 98.9 F 65 20 135/81 09/26/16 01:56 98.2 F 73 20 139/85 09/26/16 01:47 17 09/25/16 22:06 98.6 F 64 20 138/73 09/25/16 18:01 97.4 F L 64 18 119/69 Pulse Ox 09/26/16 14:20 09/26/16 09:32 09/26/16 06:55 09/26/16 04:25 97 09/26/16 01:56 97 09/26/16 01:47 09/25/16 22:06 09/25/16 18:01 96 - Physical Examination General: No Apparent Distress HEENT: Positive: PERRL Neck: Positive: trachea midline Cardiac: Positive: Reg Rate and Rhythm Lungs: Positive: Decreased Breath Sounds Neuro: Positive: Grossly Intact Abdomen: Positive: Soft. Negative: Tender, Distended Skin: Positive: Clear Incision: Cardiac Cath Site Musculoskeletal: No Pain, Normal Range of Motion Extremities: Absent: edema - Labs and Meds Coagulation 09/26/16 Range/Units 06:37 PT 21.3 H (12.2-14.9) Sec. INR 1.85 H (0.87-1.13)
[2016-09-27] MEDS: NITRO-BID 2% TP SCH ×2 (05:41→09:29)
[2016-09-27 06:04] LABS: INR 2.13 (0.87-1.13)
[2016-09-27] MEDS: PERCOCET 5/325 PO PRN (07:36)
[2016-09-27] MEDS: LOVENOX SUB-Q SCH (09:27)
--- NOTE | 2016-09-27 10:58 | Progress Note ---
Assessment and Plan Atypical chest pain no ischemia by MPI this admission Hx of mechanical Aortic valve replacement on warfarin therapy as an outpatient Subtherapeutic INR on presentation Recommendation: Ok for discharge home today. F/U with [facility] on Friday for an INR check. Subjective Date of service: 09/27/16 Principal diagnosis: chest pain Interval history: INR 2.1 today. Patient has no complaints. Objective Vital Signs Temp Pulse Pulse Pulse Pulse Resp BP 09/27/16 08:00 97.5 F L 88 20 09/27/16 05:41 78 127/74 09/27/16 04:50 97.9 F 62 20 09/27/16 00:00 98.1 F 62 20 09/26/16 23:45 18 09/26/16 22:00 18 09/26/16 14:20 67 115/61 09/26/16 13:00 97.9 F 67 17 BP Pulse Ox 09/27/16 08:00 115/70 96 09/27/16 05:41 09/27/16 04:50 126/70 98 09/27/16 00:00 127/67 99 09/26/16 23:45 09/26/16 22:00 09/26/16 14:20 09/26/16 13:00 115/61 97 - Physical Examination General: No Apparent Distress HEENT: Positive: PERRL Neck: Positive: trachea midline Cardiac: Positive: Reg Rate and Rhythm Neuro: Positive: Grossly Intact Abdomen: Positive: Soft. Negative: Tender, Distended Skin: Positive: Clear Incision: Cardiac Cath Site Musculoskeletal: No Pain, Normal Range of Motion Extremities: Absent: edema - Labs and Meds Coagulation 09/27/16 Range/Units 05:32 PT 23.9 H (12.2-14.9) Sec. INR 2.13 H (0.87-1.13)
--- NOTE | 2016-09-27 12:37 | Discharge Summary ---
Providers - Providers Date of Admission: 09/20/16 00:33 Date of discharge: 09/27/16 Attending physician: ORACIO MENENDEZ Primary care physician: DALLAS DEJESUS MD Hospitalization Condition: Fair Hospital course: This is a 61 year old male presented with left precordial chest pain at rest. He had a thallium scan which was negative but while in the emergency room patient was found to have a subtherapeutic INR and admitted to a adjust his Coumadin. Discharge Diagnosis: Acute chest pain, myocardial stress test negative, cardiology was following HTN, cont home meds COPD, not on exacerbation, h/o mechanical aortic valve, on coumadin Subtherapeutic INR, - bridged with lovenox till therapeutic, pharmacy dosing coumadin - INR was 2.13 on discharge - Aspirin was added per cardiology recommendation - he will f/u with cardiology office on Friday to check INR Disposition: DISCHARGED TO HOME OR SELFCARE Time spent for discharge: 32 minutes Core Measure Documentation - Palliative Care Palliative Care/ Comfort Measures: Not Applicable - Core Measures Any of the following diagnoses?: none Exam - Physical Exam Narrative exam: General appearance: Present: no acute distress, well-nourished - EENT Eyes: PERRL, EOM intact ENT: hearing intact, clear oral mucosa Ears: bilateral: normal - Neck Neck: supple, normal ROM - Respiratory Respiratory effort: normal Respiratory: bilateral: CTA - Cardiovascular Rhythm: regular Heart Sounds: Present: S1 & S2. Absent: gallop, rub Extremities: pulses intact, No edema, normal color, Full ROM - Gastrointestinal General gastrointestinal: Present: soft, non-tender, non-distended, normal bowel sounds - Integumentary Integumentary: clear, warm, dry - Musculoskeletal Musculoskeletal: 1, strength equal bilaterally - Neurologic Neurologic: moves all extremities - Psychiatric Psychiatric: memory intact, appropriate mood/affect, intact judgment & insight - Constitutional Vitals: Temp Pulse Resp BP Pulse Ox 97.5 F L 82 20 115/70 96 09/27/16 08:00 09/27/16 10:00 09/27/16 08:00 09/27/16 08:00 09/27/16 08:00 Plan Activity: advance as tolerated Weight Bearing Status: Weight Bear as Tolerated Diet: low cholesterol, low salt Follow up with: PRIMARY CARE, [Primary Care Provider] - 3-5 Days Forms: Warfarin Discharge Instruction Prescriptions: Aspirin [Aspirin BABY CHEW TAB] 81 mg PO QDAY #30 tab.chew Warfarin [Coumadin] 10 mg PO DAILY@1700 #14 tablet Warfarin [Coumadin] 2.5 mg PO DAILY@1700 #14 tablet
[2016-09-27 13:07] VITALS: BP 111/70
[2016-09-28] MEDS ORDERED: BABY ASPIRIN PO SCH (10:00)
== END 2016-09-27 14:17 | disposition home or self-care (01) | DRG 313 ==
LOC: ED 22:27 → 4A 09-20 00:33
PROVIDERS: ADMIT Internal Medicine; ATTEND Internal Medicine
DX: R07.2 Precordial pain (principal); I10 Essential (primary) hypertension; J44.9 Chronic obstructive pulmonary disease, unspecified; F17.210 Nicotine dependence, cigarettes, uncomplicated
CPT/HCPCS: 36415; 78452; 80048; 82550; 82553; 84484; 85025; 85610; 85730; 93005; 93010; 93017; 96361; 96374; 96375; 99406; A9502; J1644; J1650; J2270; J2405; J2785; J7040